=== PATIENT | male | born 1955 | race Hispanic/Latino ===

== ENCOUNTER → 2025-09-29 | Outpatient (CLI) | payer OTHER ==
--- NOTE | 2025-09-30 11:04 | HMCIMG ---
EXAM Venous Doppler Ultrasound of the Lower Extremities CLINICAL INDICATION Lower extremity pain. Evaluate for deep venous thrombosis. COMPARISON None. TECHNIQUE Grayscale, color Doppler, and spectral Doppler ultrasound evaluation of the deep and superficial venous systems of both lower extremities was performed. Compression, respiratory phasicity, and augmentation maneuvers were assessed where technically feasible. FINDINGS Venous System The bilateral common femoral, profunda femoris, femoral, and popliteal veins are patent and fully compressible with normal spontaneous venous flow, respiratory phasicity, and augmentation. The bilateral posterior tibial veins are patent and compressible with appropriate calf augmentations. No intraluminal thrombus is identified within the deep venous systems. The bilateral great saphenous veins are patent and compressible throughout their visualized courses. Soft Tissues No focal fluid collection, mass, or abnormal soft tissue edema is identified in the evaluated portions of the lower extremities. IMPRESSION * No sonographic evidence of acute deep venous thrombosis in either lower extremity. * Patent bilateral great saphenous veins without superficial thrombosis. RECOMMENDATIONS Per ACR Appropriateness Criteria, no additional imaging is indicated if symptoms improve. If symptoms persist or worsen, or if clinical suspicion for deep venous thrombosis remains high, repeat venous duplex ultrasound in 57 days may be considered. /Dana
== END | disposition home or self-care (01) ==
LOC: RAH 14:44
PROVIDERS: ATTEND Nurse Practitioner Family
DX: I83.813 Varicose veins of bilateral lower extremities with pain (principal)
CPT/HCPCS: 93970